=== PATIENT | male | born 1970 | race Caucasian/White ===

== ENCOUNTER 2018-06-19 10:04 | Day surgery (SDC) | payer OTHER ==
[2018-06-19] MEDS ORDERED: PROPOFOL 40 ML (11:54)
== END 2018-06-19 13:24 | disposition home or self-care (01) ==
LOC: GIL 10:04
DX: K62.5 Hemorrhage of anus and rectum (principal); K62.6 Ulcer of anus and rectum; I10 Essential (primary) hypertension
CPT/HCPCS: 45385; 88305